=== PATIENT | female | born 1975 | race Caucasian/White ===

== ENCOUNTER → 2017-05-04 | Outpatient (CLI) | payer OTHER ==
[~2017-05-04] MED LIST: GASTROGRAFIN SOLUTION 30ML (Q9963) As Ordered ONE; ISOVUE-370 76% 100ML VIAL (Q9967) As Ordered ONE
--- NOTE | 2017-05-04 16:37 | REP ---
CT of the abdomen and pelvis without and with IV contrast: There are no comparison studies. The visualized lung [place] are unremarkable. The hepatic parenchyma, pancreas and spleen are unremarkable on both phases of the study. There are surgical clips in the gallbladder fossa. The adrenals and kidneys are unremarkable. The abdominal aorta is unremarkable. There is no retroperitoneal adenopathy. There is no bowel distension. However, there is gastric distension from ingested material. Bezoar and gastroparesis are some diagnostic considerations. Pelvis: The uterus and adnexa are unremarkable except for a small involuting right adnexal follicle. The the patient indicates she has had appendectomy. There is no ascites or adenopathy. The pelvic bowel loops are unremarkable. Impression: Status post cholecystectomy and appendectomy. Gastric distension with ingested material, bezoar or and gastroparesis are some diagnostic considerations. No adenopathy or ascites. No bowel distension. No inflammatory changes, adenopathy or ascites. The small involuting right adnexal follicle. Signed by Luis F Carpenter MD 05/04/2017 04:29 P
== END ==
LOC: M RAD 14:10
PROVIDERS: ATTEND Internal Medicine Gastroenterology
DX: R63.4 Abnormal weight loss (principal)
CPT/HCPCS: 74178; Q9963; Q9967

== ENCOUNTER 2017-05-14 13:08 | Outpatient (CLI) | payer OTHER ==
[~2017-05-14] VITALS: Ht 170.2 cm; Wt 66.7 kg
[2017-05-14] MEDS ORDERED: NS 1,000 ML IV ONE (13:15)
[2017-05-14] MEDS ORDERED: PROPOFOL 200 MG/20 ML VIAL As Ordered ONE ×2 (15:01→15:08)
[2017-05-14] MEDS ORDERED: LIDOCAINE 2% INJ 100 MG/5 ML SDV (FOR ANES.) As Ordered ONE (15:01)
--- NOTE | 2017-05-14 15:25 | ROOR ---
Patient Name: Lena Thomas Procedure Date: 05/14/2017 3:00 PM Date of : 1975 Age: 42 Room: [id number] Gender: Female Note Status: Finalized Procedure: Colonoscopy Indications: Suspected irritable bowel syndrome, Weight loss Providers: Norberto TOVAR MD Referring MD: ONEIL LANZA MD Requesting Provider: Medicines: Monitored Anesthesia Care Complications: No immediate complications. Procedure: Pre-Anesthesia Assessment: - The heart rate, respiratory rate, oxygen saturations, blood pressure, adequacy of pulmonary ventilation, and response to care were monitored throughout the procedure. The Colonoscope was introduced through the anus and advanced to 10 cm into the ileum. The colonoscopy was performed without difficulty. The patient tolerated the procedure well. The quality of the bowel preparation was good. Findings: The perianal and digital rectal examinations were normal. The colon (entire examined portion) appeared normal. The terminal ileum appeared normal. Mild diverticulosis and small internal hemorrhoids. Impression: - Mild diverticulosis and small internal hemorrhoids. - The entire colon is normal. - The examined portion of the ileum was normal. - No specimens collected. - (Irritable Bowel Syndrome/IBS suspected.) Recommendation: - Continue present medications. - Perform an upper GI endoscopy at appointment to be scheduled. - My office will call you to schedule the procedure. - I am still awaiting your stool testing and your blood work---please get this done soon Your CT scan was unremarkable except the stomach did not empty properly for that test. This should be evaluated with an Upper scope. My office will call you to schedule an Upper Endoscopy (EGD). Norberto Tovar MD Norberto TOVAR MD 05/14/2017 3:24:55 PM This report has been signed electronically. Number of Addenda: 0 Note Initiated On: 05/14/2017 3:00 PM Estimated Blood Loss: Estimated blood loss: none.
[2017-05-14 15:45] VITALS: BP 137/80
== END 2017-05-14 16:02 | disposition home or self-care (01) ==
LOC: M OPP 13:08
PROVIDERS: ATTEND Internal Medicine Gastroenterology
DX: R63.4 Abnormal weight loss (principal); R19.7 Diarrhea, unspecified; K57.30 Diverticulosis of large intestine without perforation or abscess without bleeding; K64.8 Other hemorrhoids; K58.9 Irritable bowel syndrome, unspecified; R12 Heartburn; F41.9 Anxiety disorder, unspecified; Z80.3 Family history of malignant neoplasm of breast; Z80.41 Family history of malignant neoplasm of ovary